=== PATIENT | male | born 1965 | race Caucasian/White ===

== ENCOUNTER 2020-03-09 19:20 | Emergency (ER) | payer OTHER ==
[~2020-03-09] VITALS: Ht 182.9 cm; Wt 130.6 kg
[2020-03-09 19:42] VITALS: BP 164/104
--- NOTE | 2020-03-09 19:48 | ER.PDOC ---
General Chief Complaint: Lower Back Pain or Injury Stated Complaint: LOWER BACK PAIN Time seen by MD: 19:35 Source: patient Exam Limitations: no limitations History of Present Illness Timing/Duration: this morning Severity/Quality: moderate Method of Injury: twisted Modifying Factors: improves with rest Associated Symptoms: muscle spasms, lower back pain (midline) Prior symptoms/Treatment: No Similar symptoms previous, No Recenly Seen, No Treated by Doctor, No Recently Hospitalized Allergies: Coded Allergies: No Known Allergies (Unverified , 03/09/20) Past Medical History Medical History: no pertinent history Surgical History: no surgical history Family History Significant Family History: no pertinent family hx Social History Smoking: non-smoker Alcohol Use: none Drug Use: none Review of Systems Constitutional: no symptoms reported EENTM: no symptoms reported Respiratory: no symptoms reported Cardiovascular: no symptoms reported Gastrointestinal: no symptoms reported Genitourinary: no symptoms reported Musculoskeletal: see HPI Skin: no symptoms reported Psychiatric/Neurological: no symptoms reported All Other Systems: Reviewed and Negative Physical Exam General Appearance: Moderate Distress HEENT: PERRL/EOMI, Normal ENT Inspection, TMs Normal, Pharynx Normal Neck: Non-Tender, Normal Alignment Cardiovascular/Respiratory: Regular Rate, Rhythm, No M/R/G, Normal Peripheral Pulses, No JVD, Normal Breath Sounds, No Respiratory Distress Gastrointestinal: Normal Bowel Sounds, No Organomegaly, No Pulsatile Mass, Non Tender, Soft Back: Vertebral Tenderness (L1-L4) Extremities: No Evidence of Injury, Normal Range of Motion, Non-Tender, No Pedal Edema, Pelvis Stable Neuro/Psych: Alert, pharmacist aide nml/symmetrical, mood/effect nml, No Motor/Sensory Deficits, Relexes nml Skin: Normal Color, Warm/Dry Results/Orders Results/Orders Orders - TJ GODFREY MD Ketorolac Tromethamine (Toradol) (03/09/20 20:00) Vital Signs Date Time Temp Pulse Resp B/P (MAP) Pulse Ox O2 Delivery O2 Flow Rate FiO2 03/09/20 19:42 98.2 83 16 03/09/20 19:42 98.2 83 16 164/104 (124) 94 Room Air 03/09/20 19:42 98.2 83 16 94 Departure Time of Disposition: 19:46 Disposition: 01 HOME, SELF-CARE Impression: Primary Impression: Low back pain Condition: Stable Referrals: PCP,UNKNOWN (PCP) PRIMARY CARE PROVIDER Comments flexeril 10 tid prn tyl #3 # 10 1-2 q 6hr prn Aleve as directed Duration or Time Spent with Pa: 15 Problem Qualifiers Primary Impression: Low back pain Chronicity: acute Back pain laterality: midline Sciatica presence: without sciatica Qualified Codes: M54.5 - Low back pain TJ GODFREY MD Mar 09, 2020 19:48
[2020-03-09] MEDS ORDERED: TORADOL ONE (19:58)
[2020-03-09] MEDS ORDERED: TORADOL IM ONE (20:00)
== END 2020-03-09 20:13 | disposition home or self-care (01) ==
LOC: ER 19:20
DX: M54.5 Low back pain (principal)
CPT/HCPCS: 96372; 99283; J1885